=== PATIENT | female | born 1945 | race Caucasian/White ===

== ENCOUNTER → 2016-11-12 16:30 | Outpatient (CLI) | payer MEDICARE ==
[2010-01-24 07:50] VITALS: BMI 25.6
== END | disposition home or self-care (01) ==
LOC: D.MAMMO 15:15
DX: Z12.31 Encounter for screening mammogram for malignant neoplasm of breast (principal)

== ENCOUNTER → 2016-12-13 16:45 | Outpatient (CLI) | payer MEDICARE ==
[2010-01-24 07:50] VITALS: BMI 25.6
== END | disposition home or self-care (01) ==
LOC: D.MAMMO 12-12 13:30
DX: R92.8 Other abnormal and inconclusive findings on diagnostic imaging of breast (principal); J44.9 Chronic obstructive pulmonary disease, unspecified

== ENCOUNTER → 2017-05-21 13:06 | Outpatient (CLI) | payer MEDICARE ==
[2010-01-24 07:50] VITALS: BMI 25.6
== END | disposition home or self-care (01) ==
LOC: D.MAMMO 09:30
DX: R92.8 Other abnormal and inconclusive findings on diagnostic imaging of breast (principal)

== ENCOUNTER → 2018-07-23 19:42 | Outpatient (CLI) | payer MEDICARE ==
[2010-01-24 07:50] VITALS: BMI 25.6
== END | disposition home or self-care (01) ==
LOC: D.MAMMO 14:30
DX: N64.4 Mastodynia (principal)